=== PATIENT | male | born 1990 | race Caucasian/White ===

== ENCOUNTER 2017-10-11 11:03 | Emergency (ER) | payer BC ==
[~2017-10-11] VITALS: Ht 177.8 cm; Wt 103.0 kg
[~2017-10-11 11:03] MED LIST: LEVE500 PO
[2017-10-11 11:07] VITALS: BP 158/81; PULSE 96; RESP 18; TEMP 98.6; O2SAT 98
[2017-10-11] MEDS ORDERED: KEPP750T PO (11:21)
--- NOTE | 2017-10-11 11:48 | PD ---
HPI Chief Complaint: Seizure Time Seen by Provider: 11:28 Travel History International Travel<30 days: No Contact w/Intl Traveler<30days: No Traveled to known affect area: No History of Present Illness HPI 27-year-old male was brought in by EMS after a seizure episode. Patient was witnessed by his roommate having seizure this morning. Patient was in the bathroom. Patient states that he had loss of consciousness and woke up in the ambulance. Patient states that he has mild aching headache. Patient denies any visual change. Patient complained of mild aching neck pain. Patient denies any chest pain or shortness of breath. Patient denies abdominal pain. Patient denies any nausea vomiting diarrhea. Patient denies any focal weakness or numbness of the extremity. Patient denies any injury from the seizure. Patient was seen in emergency room in May 2015 after a seizure episode. CT scan of the brain and workup was negative. Patient was seen by Dr. Jaquez , neurologist and put on seizure medication. Patient states that he was on seizure medication for 4 months. Patient stopped taking the seizure medication because it made him having mood swings. Patient has feelings of impending seizure intermittently since then. Patient denies any seizure episodes until today. Patient denies any illicit drugs alcohol abuse. Patient is not on any routine medication. Patient denies any medical problem. Patient denies any recent head injury. Medical record state that patient was on Keppra 1000 mg twice a day in the past. PFSH Past Medical History Cancer: No Cardiovascular Problems: No Diminished Hearing: No Endocrine: No Genitourinary: No Immune Disorder: No Musculoskeletal: No Neurologic: Yes Psychiatric: No Respiratory: No Immunizations Current: Yes Seizures: Yes (FIRST TIME WAS 06/03/15) Tetanus Vaccination: > 5 Years Influenza Vaccination: No Past Surgical History Surgical History: No Previous Surgery Social History Alcohol Use: Yes (occ.) Tobacco Use: No Substance Use: Yes (MARAJUNA DAILY) Allergies-Medications (Allergen,Severity, Reaction): Coded Allergies: No Known Allergies (Verified Adverse Reaction, Unknown, 10/11/17) Reported Meds & Prescriptions Reported Meds & Active Scripts Active Reported Keppra (Levetiracetam) 750 Mg Tab 1,000 Mg PO BID Review of Systems General / Constitutional: No: Fever Eyes: No: Visual changes HENT: No: Headaches Cardiovascular: No: Chest Pain or Discomfort Respiratory: No: Shortness of Breath Gastrointestinal: No: Abdominal Pain Genitourinary: No: Dysuria Musculoskeletal: No: Pain Skin: No Rash Neurologic: No: Weakness Psychiatric: No: Depression Endocrine: No: Polydipsia Hematologic/Lymphatic: No: Easy Bruising Physical Exam Narrative GENERAL: Well-nourished, well-developed patient. SKIN: Focused skin assessment warm/dry. HEAD: Normocephalic. EYES: No scleral icterus. No injection or drainage. Pupils 2 mm equal reactive. NECK: Supple, trachea midline. No JVD or lymphadenopathy. CARDIOVASCULAR: Regular rate and rhythm without murmurs, gallops, or rubs. RESPIRATORY: Breath sounds equal bilaterally. No accessory muscle use. GASTROINTESTINAL: Abdomen soft, non-tender, nondistended. MUSCULOSKELETAL: No cyanosis, or edema. BACK: Nontender without obvious deformity. No CVA tenderness. Neurologic exam: Patient is awake and alert oriented 3. Patient moves all extremity well. No obvious focal neurological deficit. Data Data Last Documented VS Vital Signs Date Time Temp Pulse Resp B/P (MAP) Pulse Ox O2 Delivery O2 Flow Rate FiO2 10/11/17 11:49 98 Nasal Cannula 2.00 10/11/17 11:10 96 10/11/17 11:07 98.6 18 158/81 (106) Orders Orders Electrocardiogram (10/11/17 11:38) Complete Blood Count With Diff (10/11/17 11:38) Comprehensive Metabolic Panel (10/11/17 11:38) Thyroid Stimulating Hormone (10/11/17 11:38) Iv Access Insert/Monitor (10/11/17 11:38) Ecg Monitoring (10/11/17 11:38) Oximetry (10/11/17 11:38) Drug Screen, Random Urine (10/11/17 11:38) Lorazepam (Ativan) (10/11/17 12:45) Divalproex Er (Depakote Er) (10/11/17 12:45) Labs Laboratory Tests Test 10/11/17 12:00 White Blood Count 9.6 TH/MM3 Red Blood Count 5.25 MIL/MM3 Hemoglobin 14.5 GM/DL Hematocrit 43.9 % Mean Corpuscular Volume 83.5 FL Mean Corpuscular Hemoglobin 27.6 PG Mean Corpuscular Hemoglobin Concent 33.0 % Red Cell Distribution Width 11.9 % Platelet Count 214 TH/MM3 Mean Platelet Volume 8.8 FL Neutrophils (%) (Auto) 81.2 % Lymphocytes (%) (Auto) 9.9 % Monocytes (%) (Auto) 6.8 % Eosinophils (%) (Auto) 0.7 % Basophils (%) (Auto) 1.4 % Neutrophils # (Auto) 7.8 TH/MM3 Lymphocytes # (Auto) 0.9 TH/MM3 Monocytes # (Auto) 0.7 TH/MM3 Eosinophils # (Auto) 0.1 TH/MM3 Basophils # (Auto) 0.1 TH/MM3 CBC Comment DIFF FINAL Differential Comment Blood Urea Nitrogen 13 MG/DL Creatinine 0.90 MG/DL Random Glucose 102 MG/DL Total Protein 7.7 GM/DL Albumin 3.9 GM/DL Calcium Level 9.5 MG/DL Alkaline Phosphatase 80 U/L Aspartate Amino Transf (AST/SGOT) 28 U/L Alanine Aminotransferase (ALT/SGPT) 61 U/L Total Bilirubin 0.5 MG/DL Sodium Level 141 MEQ/L Potassium Level 4.0 MEQ/L Chloride Level 111 MEQ/L Carbon Dioxide Level 22.6 MEQ/L Anion Gap 7 MEQ/L Estimat Glomerular Filtration Rate 100 ML/MIN Urine Opiates Screen NEG Urine Barbiturates Screen NEG Urine Amphetamines Screen NEG Urine Benzodiazepines Screen NEG Urine Cocaine Screen NEG Urine Cannabinoids Screen POS MDM Medical Decision Making Medical Screen Exam Complete: Yes Emergency Medical Condition: Yes Interpretation(s) 12:36 PM. CBC within normal limits. CMP within normal limits. Glucose 102. Urine drug screen positive for cannabis. Differential Diagnosis Differential diagnosis including breakthrough seizures, electrolyte imbalance. Narrative Course 27-year-old male was brought in by EMS after a seizure episode. History of seizure in the past. Patient is not on any medication now for seizure. I spoke with Dr. Tang, neurologist. Advised Depakote. Patient will be given Ativan 0.5 mg p.o. now and Depakote 500 mg p.o. now and prescription for Depakote to go. Advised patient not to drive for 6 months. Diagnosis Primary Impression: Breakthrough seizure Patient Instructions: General Instructions Additional Instructions: Take Depakote as directed. Follow-up with local neurologist and local physician for level checked in 1 week. Follow-up with neurologist as directed. Return as needed. Med/Other Pt SpecificInfo: Prescription(s) given Scripts Divalproex ER (Depakote ER) 500 Mg Gi 500 MG PO BID for Control Seizures, #60 TAB 0 Refills Prov: Jon Adams MD 10/11/17 Disposition: 01 DISCHARGE HOME Condition: Stable Jon Adams MD October 11, 2017 11:48
[2017-10-11 11:49] VITALS: O2SAT 98
[2017-10-11 12:16] LABS: AUTOMATED NEUTROPHIL # 7.8 TH/MM3 (1.8-7.7); BASOPHIL # 0.1 TH/MM3 (0-0.2); BASOPHIL % 1.4 % (0.0-2.0); EOSINOPHIL # 0.1 TH/MM3 (0-0.4); EOSINOPHIL % 0.7 % (0.0-4.0); HEMATOCRIT 43.9 % (39.0-51.0); HEMOGLOBIN 14.5 GM/DL (13.0-17.0); LYMPH % 9.9 % (9.0-44.0); LYMPHOCYTE # 0.9 TH/MM3 (1.0-4.8); MEAN CELL VOLUME 83.5 FL (80.0-100.0); MEAN CORPUSCULAR HEMOGLOBIN 27.6 PG (27.0-34.0); MEAN PLATELET VOLUME 8.8 FL (7.0-11.0); MONO % 6.8 % (0.0-8.0); MONOCYTE # 0.7 TH/MM3 (0-0.9); NEUT % 81.2 % (16.0-70.0); PLATELET COUNT 214 TH/MM3 (150-450); RED BLOOD COUNT 5.25 MIL/MM3 (4.50-5.90); RED CELL DISTRIBUTION WIDTH 11.9 % (11.6-17.2); WHITE BLOOD COUNT 9.6 TH/MM3 (4.0-11.0)
[2017-10-11 12:26] LABS: CHLORIDE 111 MEQ/L (98-107); SODIUM (NA) 141 MEQ/L (136-145)
[2017-10-11 12:29] LABS: ALBUMIN 3.9 GM/DL (3.4-5.0); BICARBONATE 22.6 MEQ/L (21.0-32.0); CALCIUM 9.5 MG/DL (8.5-10.1); GLUCOSE,RANDOM 102 MG/DL (74-106)
[2017-10-11 12:30] LABS: BLOOD UREA NITROGEN 13 MG/DL (7-18)
[2017-10-11 12:32] LABS: ALT (GPT) 61 U/L (12-78); AST (GOT) 28 U/L (15-37)
[2017-10-11 12:33] LABS: GLOMERULAR FILTRATION RATE 100 ML/MIN (>89)
[2017-10-11 12:34] LABS: TOTAL BILIRUBIN ADULT 0.5 MG/DL (0.2-1.0); TOTAL PROTEIN 7.7 GM/DL (6.4-8.2)
[2017-10-11 12:35] LABS: ALKALINE PHOSPHATASE 80 U/L (45-117)
[2017-10-11] MEDS ORDERED: DIVALPROEX SODIUM E.R. 500 MG TAB PO ONE (12:45)
[2017-10-11] MEDS ORDERED: LORazepam 0.5 MG TAB PO ONE (12:45)
[2017-10-11 12:48] VITALS: BP 136/81; PULSE 73; RESP 16; O2SAT 99
[2017-10-11] MEDS ORDERED: DEPA500T3 PO (12:48)
--- NOTE | 2017-10-13 08:50 | EKG ---
Date Performed: 10/11/2017 Time Performed: 11:58:04 PTAGE: 27 years EKG: Sinus rhythm NORMAL ECG PREVIOUS TRACING : 08/09/2015 07.43 DOCTOR: Torres Buenrostro Interpretating Date/Time 10/13/2017 08:45:20
== END 2017-10-11 13:00 | disposition home or self-care (01) ==
LOC: PHED 11:03
DX: R56.9 Unspecified convulsions (principal); F12.90 Cannabis use, unspecified, uncomplicated; R51 Headache; M54.2 Cervicalgia
CPT/HCPCS: 80053; 80307; 84443; 85025; 93005; 99284

== ENCOUNTER 2017-10-11 14:57 | Observation (INO) | payer BC ==
[~2017-10-11] VITALS: Ht 177.8 cm; Wt 105.0 kg
[~2017-10-11 14:57] MED LIST changes: +DEPA500T3 PO; +KEPP750T PO
[2017-10-11] MEDS ORDERED: SODIUM CHLOR 0.9% 1000 ML INJ 1,000 ML IV SCH (15:11)
[2017-10-11 15:15] VITALS: BP 172/83; PULSE 105; RESP 18; TEMP 98.5; O2SAT 98
[2017-10-11] MEDS ORDERED: LORazepam 2 MG/ML VIAL IV PUSH ONE (15:15)
[2017-10-11] MEDS ORDERED: METOCLOPRAMIDE HCL 10 MG/2 ML VIAL IV PUSH ONE (15:15)
--- NOTE | 2017-10-11 15:15 | PD ---
HPI Chief Complaint: Seizure Time Seen by Provider: 15:01 Travel History International Travel<30 days: No Contact w/Intl Traveler<30days: No Traveled to known affect area: No History of Present Illness HPI 27-year-old male presents via EMS for evaluation of seizure. Prior to arrival the patient was at home on his bed reportedly eating a hamburger when he had a witnessed tonic-clonic seizure in his bed. This was witnessed by roommates. The patient was postictal when EMS arrived. Currently awake and alert, complaining of a headache and nausea. He vomited 4 times en route. The patient was seen at [facility] this morning after a separate seizure occurred this morning. Reportedly he hit his head on the toilet during his initial seizure. He was seen, lab work, EKG was performed. He was given a dose of oral Depakote and oral Ativan. He was given a prescription for Depakote upon discharge. The patient has had seizures in the past, his last seizure was approximately 1.5 years ago. According to medical records she was previously on Keppra however he has not been on any antiseizure medication in several months. Endorses occasional marijuana use. Denies any other illicit substance. He has no other complaints at this time. [facility] Past Medical History Cancer: No Cardiovascular Problems: No Diminished Hearing: No Endocrine: No Genitourinary: No Immune Disorder: No Musculoskeletal: No Neurologic: Yes Psychiatric: No Respiratory: No Immunizations Current: Yes Seizures: Yes (FIRST TIME WAS 06/03/15) Social History Alcohol Use: Yes (occ.) Tobacco Use: No Substance Use: Yes (MARAJUNA DAILY) Allergies-Medications (Allergen,Severity, Reaction): Coded Allergies: No Known Allergies (Verified Adverse Reaction, Unknown, 10/11/17) Reported Meds & Prescriptions Reported Meds & Active Scripts Active Depakote ER (Divalproex Sodium) 500 Mg Gi 500 Mg PO BID Reported Keppra (Levetiracetam) 750 Mg Tab 1,000 Mg PO BID Review of Systems Except as stated in HPI: all other systems reviewed are Neg Physical Exam Narrative GENERAL: Well-developed well-nourished male in no acute distress SKIN: Warm and dry. Abrasion/contusion noted to the forehead. HEAD: Skin as noted above. Normocephalic. EYES: Pupils equal and round reactive to light extraocular muscles are intact. No scleral icterus. No injection or drainage. ENT: No nasal bleeding or discharge. Mucous membranes pink and moist. NECK: Trachea midline. No JVD. CARDIOVASCULAR: Regular rate and rhythm. No murmur appreciated. RESPIRATORY: No accessory muscle use. Clear to auscultation. Breath sounds equal bilaterally. GASTROINTESTINAL: Abdomen soft, non-tender, nondistended. Hepatic and splenic margins not palpable. MUSCULOSKELETAL: No obvious deformities. No clubbing. No cyanosis. No edema. NEUROLOGICAL: Awake and alert. No obvious cranial nerve deficits. Motor grossly within normal limits. Normal speech. PSYCHIATRIC: Appropriate mood and affect; insight and judgment normal. Data Data Last Documented VS Vital Signs Date Time Temp Pulse Resp B/P (MAP) Pulse Ox O2 Delivery O2 Flow Rate FiO2 10/11/17 15:15 98.5 105 18 172/83 (112) 98 Room Air Orders Orders Ct Brain W/O Iv Contrast(Rout) (10/11/17 ) Lorazepam Inj (Ativan Inj) (10/11/17 15:15) Electrocardiogram (10/11/17 ) Sodium Chlor 0.9% 1000 Ml Inj (Ns 1000 M (10/11/17 15:11) Metoclopramide Inj (Reglan Inj) (10/11/17 15:15) Blood Glucose (10/11/17 15:16) Admit Order (Ed Use Only) (10/11/17 ) Geophysics Professor / Telemetry WES.Q8H (10/11/17 16:51) Vital Signs (Adult) Q4H (10/11/17 16:51) Activity Bed Rest (10/11/17 16:51) Activity Oob With Assistance (10/11/17 16:51) [facility] Medical Decision Making Medical Screen Exam Complete: Yes Emergency Medical Condition: Yes Medical Record Reviewed: Yes Differential Diagnosis Breakthrough seizure, closed head injury, hypoglycemia, electrolyte abnormality Narrative Course The patient will be given IV Ativan, Reglan, normal saline. I reviewed his lab work from this morning. His CBC was unremarkable. His CMP was unremarkable. Drug screen was positive for cannabinoids. CT of the brain has been ordered. CT the brain is negative. At this point time, given the patient's recurrent seizures today, he will be admitted for observation. Diagnosis Primary Impression: Seizure Admitting Information Admitting Physician Requests: Observation Zuhair James October 11, 2017 15:15
--- NOTE | 2017-10-11 16:19 | RADRPT ---
EXAM DATE/TIME: 10/11/2017 15:54 [facility] COMPARISON: CT BRAIN W/O CONTRAST, June 03, 2015, 12:23. INDICATIONS : Seizure, cephalgia RADIATION DOSE: 56.35 CTDIvol (mGy) MEDICAL HISTORY : Seizures. SURGICAL HISTORY : None. ENCOUNTER: Initial ACUITY: 1 day PAIN SCALE: 4/10 LOCATION: cranial TECHNIQUE: Multiple contiguous axial images were obtained of the head. Using automated exposure control and adj ustment of the mA and/or kV according to patient size, radiation dose was kept as low as reasonably a chievable to obtain optimal diagnostic quality images. DICOM format image data is available electro nically for review and comparison. FINDINGS: CEREBRUM: The ventricles are normal for age. No evidence of midline shift, mass lesion, hemorrhage or acute in farction. No extra-axial fluid collections are seen. POSTERIOR FOSSA: The cerebellum and brainstem are intact. The 4th ventricle is midline. The cerebellopontine angle i s unremarkable. EXTRACRANIAL: The visualized portion of the orbits is intact. SKULL: The calvaria is intact. No evidence of skull fracture. CONCLUSION: Normal examination. Yonis Celaya MD on October 11, 2017 at 16:15 Board Certified Radiologist. This report was verified electronically.
--- NOTE | 2017-10-11 17:00 | PD ---
Data Data Last Documented VS Vital Signs Date Time Temp Pulse Resp B/P (MAP) Pulse Ox O2 Delivery O2 Flow Rate FiO2 10/11/17 15:15 98.5 105 18 172/83 (112) 98 Room Air Orders Orders Ct Brain W/O Iv Contrast(Rout) (10/11/17 ) Lorazepam Inj (Ativan Inj) (10/11/17 15:15) Electrocardiogram (10/11/17 ) Sodium Chlor 0.9% 1000 Ml Inj (Ns 1000 M (10/11/17 15:11) Metoclopramide Inj (Reglan Inj) (10/11/17 15:15) Blood Glucose (10/11/17 15:16) Admit Order (Ed Use Only) (10/11/17 ) De Icer Installer / Telemetry WES.Q8H (10/11/17 16:51) Vital Signs (Adult) Q4H (10/11/17 16:51) Activity Bed Rest (10/11/17 16:51) Activity Oob With Assistance (10/11/17 16:51) MDM Medical Record Reviewed: Yes Supervised Visit with ARMAND: Yes Narrative Course I, Dr. Celis, have reviewed the advance practice practitioner's documentation and am in agreement, met with the patient face to face, made the diagnosis, and the medical decision making was done by me. *My assessment and Findings: Patient will be admitted for monitoring and further evaluation for recurrent seizure events. Diagnosis Primary Impression: Seizure David Celis MD October 11, 2017 16:59
[2017-10-11 17:12] VITALS: BP 145/91; PULSE 86
--- NOTE | 2017-10-11 17:59 | HHI.HP ---
HPI Service [facility] Primary Care Physician No Primary Care Physician Admission Diagnosis Seizure Diagnoses: Chief Complaint: Seizure Travel History International Travel<30 Days: No Contact w/Intl Traveler <30 Da: No Traveled to Known Affected Are: No History of Present Illness 27-year-old white male admitted for recurrent seizures. History is obtained from patient, and medical records as the patient has a vague memory of the incident. Patient was in his usual state of health until earlier this morning when he was noted by his roommates to have a seizure in his bathroom at home, woke up in the ambulance ride to [facility]. Reportedly the patient struck his head on the toilet seat as he fell. At [facility] ED he was stabilized, given 0.5 mg po Ativan and depakote ER 500 mg po and prescribed a ED per neurology's recommendations and discharged home. Patient reports then having a headache at some point and sat down back at his dormitory to eat a hamburger and just remembers eating a few bites after which his memory is unclear what happened. He does have a vague memory of waking up later ultimately to full consciousness in the emergency department. Both the patient and the ED nurse here affirm that he developed some nausea and had some pink vomitus which was Hemoccult negative. Patient denies any urinary or fecal incontinence. Denies any tongue biting. Blood work at his initial ED visit was unremarkable[place] [facility] [place] pt ativan 1 mg iv as well as reglan. CT head was negative for any acute findings. Patient says that he has not been taking any prescribed medications whatsoever. Says that he stopped taking antiepileptic drug treatment over a year ago, says he saw Dr. Jaquez in the clinic. Says that the patient himself stopped taking antiepileptic drugs due to mood swings are becoming a problem at work. Patient cannot remember if he was taking Dilantin or Keppra at that time. Patient does admit to being stressed at work at [employer] recently. Review of Systems Except as stated in HPI: all other systems reviewed are Neg Past Family Social History Past Medical History Epilepsy Allergies: Coded Allergies: No Known Allergies (Verified Adverse Reaction, Unknown, 10/11/17) Family History Hypertension Social History Smokes marijuana actively, says he drinks about 1-2 beers about twice a week, cannot remember the last day but does affirm that he drank earlier in the week Physical Exam Vital Signs Vital Signs Date Time Temp Pulse Resp B/P (MAP) Pulse Ox O2 Delivery O2 Flow Rate FiO2 10/11/17 17:12 86 145/91 (109) 10/11/17 15:15 98.5 105 18 172/83 (112) 98 Room Air Physical Exam VS: afebrile GENERAL: Lying in bed, awake, alert, no acute distress, well-nourished male SKIN: Warm and dry. EYES: Pupils equal and round. No scleral icterus. No injection or drainage. ENT: No nasal bleeding or discharge. Mucous membranes pink and moist. CARDIOVASCULAR: Regular rate and rhythm. no murmurs RESPIRATORY: No accessory muscle use. Clear to auscultation. Breath sounds equal bilaterally. GASTROINTESTINAL: Abdomen soft, non-tender, nondistended. Extremities: No clubbing, cyanosis, or edema. No obvious deformities. MUSCULOSKELETAL: grossly intact ROM with 5/5 strength in upper and lower extremities proximally; adequate muscle bulk and tone for age and habitus. NEUROLOGICAL: Awake and alert. No obvious cranial nerve deficits. No facial droop nor slurred speech noted.Diminished patellar reflexes bilaterally. Intact sensation to light finger touch over bilateral lower and upper extremities. No nystagmus noted, tongue protruding midline. PSYCHIATRIC: Appropriate mood and affect; insight and judgment normal. Imaging Last Impressions Head CT 10/11/17 0000 Signed Impressions: Service Date/Time: October 15:54 - CONCLUSION: Normal examination. Yonis Celaya MD Caprini VTE Risk Assessment Caprini VTE Risk Assessment: No/Low Risk (score <= 1) Caprini Risk Assessment Model Point Value = 1 Point Value = 2 Point Value = 3 Point Value = 5 Age 41-60 Minor surgery BMI > 25 kg/m2 Swollen legs Varicose veins or History of unexplained or recurrent spontaneous Oral contraceptives or hormone replacement Sepsis (< 1 month) Serious lung disease, including pneumonia (< 1 month) Abnormal pulmonary function Acute myocardial infarction Congestive heart failure (< 1 month) History of inflammatory bowel disease Medical patient at bed rest Age 61-74 Arthroscopic surgery Major open surgery (> 45 min) Laparoscopic surgery (> 45 min) Malignancy Confined to bed (> 72 hours) Immobilizing plaster cast Central venous access Age >= 75 History of VTE Family history of VTE Factor V Leiden Prothrombin [id number] Lupus anticoagulant Anticardiolipin antibodies Elevated serum homocysteine Heparin-induced thrombocytopenia Other congenital or acquired thrombophilia Stroke (< 1 month) Elective arthroplasty Hip, pelvis, or leg fracture Acute spinal cord injury (< 1 month) Prophylaxis Regimen Total Risk Factor Score Risk Level Prophylaxis Regimen 0-1 Low Early ambulation 2 Moderate Order ONE of the following: *Sequential Compression Device (SCD) *Heparin 5000 units SQ BID 3-4 Higher Order ONE of the following medications: *Heparin 5000 units SQ TID *Enoxaparin/Lovenox 40 mg SQ daily (WT < 150 kg, CrCl > 30 mL/min) *Enoxaparin/Lovenox 30 mg SQ daily (WT < 150 kg, CrCl > 10-29 mL/min) *Enoxaparin/Lovenox 30 mg SQ BID (WT < 150 kg, CrCl > 30 mL/min) AND/OR *Sequential Compression Device (SCD) 5 or more Highest Order ONE of the following medications: *Heparin 5000 units SQ TID (Preferred with Epidurals) *Enoxaparin/Lovenox 40 mg SQ daily (WT < 150 kg, CrCl > 30 mL/min) *Enoxaparin/Lovenox 30 mg SQ daily (WT < 150 kg, CrCl > 10-29 mL/min) *Enoxaparin/Lovenox 30 mg SQ BID (WT < 150 kg, CrCl > 30 mL/min) AND *Sequential Compression Device (SCD) Assessment and Plan Assessment and Plan 27-year-old white female being admitted for recurrent seizures. Seizures -Likely epileptic seizure activity due to being off medications all this time as well as marijuana use. Previously was given Ativan and Depakote at previous ED visit as well as Reglan and Ativan again at second ED visit. Will give a one -time loading dose of fosphenytoin. Will consult neurology for ultimate p.o. recommendations. -Seizure precautions, telemetry for closer monitoring Alcohol use -Unclear how heavy, will place on CIWA protocol, check INR, LFTs unremarkable SCDs Bob Clemente MD October 11, 2017 17:59
[2017-10-11] MEDS ORDERED: FOSPHENYTOIN INJ 1,000 MGPE in SODIUM CHLORIDE 0.9% INJ 50 ML IV ONE (18:00)
[2017-10-11 19:03] LABS: PROTHROMBIN TIME - PATIENT 10.1 SEC (9.8-11.6)
[2017-10-11 19:05] VITALS: BP 128/71; PULSE 90; RESP 16; O2SAT 97
[2017-10-11 19:47] VITALS: BP 132/68
[2017-10-11 20:25] VITALS: BP 119/77; PULSE 79; RESP 16; TEMP 98.6; O2SAT 98
[2017-10-11] MEDS: ACETAMINOPHEN 325 MG TAB PO PRN (22:05)
[2017-10-11 23:45] VITALS: BP 109/60; PULSE 82; RESP 16; TEMP 98.9; O2SAT 98
[2017-10-12] VITALS (9 sets, daily range): BP systolic 119–151; BP diastolic 60–99; PULSE 54–85; RESP 15–24; TEMP 97.5–98.5; O2SAT 95–100
[2017-10-12] MEDS: ACETAMINOPHEN 325 MG TAB PO PRN (09:29)
--- NOTE | 2017-10-12 11:29 | HHI.PR ---
Subjective Remarks Follow-up breakthrough seizure/medical noncompliance October 12, 2017-patient seen and examined, since admission has had no more seizure activity. Denies any dizziness. Chest pain or shortness of breath Objective Vitals Vital Signs Date Time Temp Pulse Resp B/P (MAP) Pulse Ox O2 Delivery O2 Flow Rate FiO2 10/12/17 08:26 97.8 63 24 144/90 (108) 100 10/12/17 04:00 72 10/12/17 03:46 98.2 72 16 119/78 (92) 99 10/11/17 23:45 98.9 82 16 109/60 (76) 98 10/11/17 20:25 98.6 79 16 119/77 (91) 98 10/11/17 19:47 93 18 132/68 (89) 98 10/11/17 19:05 90 16 128/71 (90) 97 Room Air 10/11/17 17:12 86 145/91 (109) 10/11/17 15:15 98.5 105 18 172/83 (112) 98 Room Air I/O 10/11/17 10/11/17 10/11/17 10/12/17 10/12/17 10/12/17 07:00 15:00 23:00 07:00 15:00 23:00 Intake Total 1070 ml 720 ml Output Total 400 ml Balance 670 ml 720 ml Intake Oral 720 ml IV Total 1070 ml Output Urine Total 400 ml # Voids 1 Imaging Last Impressions Head CT 10/11/17 0000 Signed Impressions: Service Date/Time: October 15:54 - CONCLUSION: Normal examination. Yonis Celaya MD Objective Remarks GENERAL: NAD SKIN: Warm and dry. HEAD: Normocephalic. EYES: No scleral icterus. No injection or drainage. NECK: Supple, trachea midline. No JVD or lymphadenopathy. CARDIOVASCULAR: Regular rate and rhythm without murmurs, gallops, or rubs. RESPIRATORY: Breath sounds equal bilaterally. No accessory muscle use. GASTROINTESTINAL: Abdomen soft, non-tender, nondistended. MUSCULOSKELETAL: No cyanosis, or edema. BACK: Nontender without obvious deformity. No CVA tenderness. A/P Problem List: (1) Breakthrough seizure ICD Code: G40.919 - Epilepsy, unspecified, intractable, without status epilepticus Status: Acute (2) Seizure ICD Code: R56.9 - Unspecified convulsions Status: Acute Assessment and Plan 27-year-old man with Breakthrough seizures Neurology consultation pending Will have neuro decide on antiepileptic drugs Order EEG Ativan as needed Seizure precaution Alcohol use Patient states he only drinks twice a week Currently on CIWA protocol, Lenin Vizcaino MD October 12, 2017 11:29
[2017-10-12] MEDS ORDERED: LORazepam 2 MG/ML VIAL IV PUSH PRN (11:45)
[2017-10-12] MEDS: LACOSAMIDE 100 MG TAB PO SCH ×2 (14:30→22:28)
--- NOTE | 2017-10-12 14:49 | MB ---
cc: Yareli Salinas MD,Jones Villarreal MD DATE: 10/12/2017 DATE OF : 1990 AGE: [age] years old REASON FOR CONSULTATION: Breakthrough seizure. HISTORY OF PRESENT ILLNESS: The patient is a 27-year-old man admitted for recurrent seizure, apparently started having seizures back in 2015, was placed on Keppra and then possibly changed to Depakote. I am in the process of trying to get some office records to see what medication he has been taking at home. However, the hospital reports he was on Depakote ER. Apparently had a breakthrough seizure in the bathroom, came to [facility] ED and discharged and had another one at home. Usually he gets a funny sensation, he points to his belly, and then he has an epileptic event. There was no incontinence or tongue biting. There was some questionable postictal confusion afterwards. Right now he is having an EEG and the EEG did show sharp waves over both hemispheres, it seems slightly more right than left. ALLERGIES: NONE REPORTED. FAMILY HISTORY: Hypertension. SOCIAL HISTORY: Smokes marijuana. Drinks 1-2 beers a week, but does not claim to be binge drinking. He states he has no history of any [employer] infections, encephalitis, head trauma or family history of seizures. He did have an MRI with and without contrast of the brain last year that was unremarkable. PHYSICAL EXAMINATION: VITAL SIGNS: Temperature 97.5, pulse 85, respiratory rate 20, blood pressure 127/80. NECK: Supple. HEART: Regular. CHEST: Lungs clear. NEUROLOGICAL EXAMINATION: He is awake, alert. He is oriented, fluent. Pupils reactive. Face symmetrical. Tongue midline. No drift or leg lag. Cerebellar testing is normal. Toes are downgoing. Gait is withheld. LABORATORY DATA: CBC on 10/11/2017 was unremarkable. Chemistries: Chloride 111, TSH 2.100. Coag panel normal. Toxicology positive for cannabinoids. IMAGING STUDIES: CT was done as well and that was unremarkable. As stated, the EEG does show bilateral sharps, right more so than left. IMPRESSION: Breakthrough seizure despite being on antiepileptic medication at home. RECOMMENDATIONS: He was loaded with what looks like 1 gram of Cerebyx last night. I am trying to determine what he takes in the office, but certainly we can start him on Dilantin 100 mg every 8 hours, but another good option would be putting him on Vimpat 50 mg b.i.d. No levels need to be monitored. If he is stable, he certainly can be sent home tomorrow. I will give him some Ativan p.r.n. for any auras or mild seizure. He can take 1 afterwards and have him followup as an outpatient with Dr. Jaquez. He works at [employer] in [place]. I informed him he is not to drive for 6 months. He has not to climb any ladders or swim alone. MD UGO Carter/ALEXIS , 02:04 PM , 02:48 PM
--- NOTE | 2017-10-12 16:06 | MG ---
cc: Yareli Salinas MD DATE OF : 1990 AGE: [age] years old. EEG NUMBER: [id number] REFERRING PHYSICIAN: . [place] [facility] [place] Awake, drowsy study with hyperventilation, good effort. Photic stimulation. CT normal, MRI with and without contrast in the past have been normal. History of new onset epilepsy since 2016. MEDICATIONS: Currently, was loaded with Cerebyx. DESCRIPTION OF RECORD: Overall background alpha is 8 Hz, 20-30 microvolts. Symmetrical background currently. Photic stimulation started at the initial portion with a good driving response, but there are sharp waves noted. Initially started in T4-T6, T6-O2, but as the EEG continued, the sharp waves were not only right-sided but left-sided, initially started during the photic stimulatory phase. Hyperventilation then starts and there are sharp waves during that portion as well paroxysmally seen. Again, bilateral mostly. Some PVCs are noted on EKG. IMPRESSION: Abnormal EEG due to bilateral sharp wave activity consistent with probable focus for the patient's epileptic activity. Clinical correlation. Yareli Salinas MD DF/ALEXIS , 03:18 PM , 04:05 PM
[2017-10-13 04:03] VITALS: BP 140/86; PULSE 60; RESP 16; TEMP 97.7; O2SAT 99
[2017-10-13 07:35] VITALS: BP 139/99; PULSE 74; RESP 18; TEMP 97.5; O2SAT 99
[2017-10-13] MEDS ORDERED: LACO100 PO (08:35)
[2017-10-13] MEDS: LACOSAMIDE 100 MG TAB PO SCH (08:36)
--- NOTE | 2017-10-13 08:36 | HHI.DCPOC ---
Discharge Care Plan Diagnosis: (1) Seizure (2) Breakthrough seizure Additional Problems Loss of Consciousness Goals to Promote Your Health * To prevent worsening of your condition and complications * To maintain your health at the optimal level Directions to Meet Your Goals Take your medications as prescribed Follow your dietary instruction Follow activity as directed Keep your appointments as scheduled Take your immunizations and boosters as scheduled If your symptoms worsen call your PCP, if no PCP go to Urgent Care Center or Emergency Room Smoking is Dangerous to Your Health. Avoid second hand smoke Call the 24-hour hour crisis hotline for domestic abuse at Davin Jama October 13, 2017 08:36
--- NOTE | 2017-10-13 08:43 | EKG ---
Date Performed: 10/11/2017 Time Performed: 15:21:53 PTAGE: 27 years EKG: Sinus rhythm NORMAL ECG PREVIOUS TRACING : 10/11/2017 11.58 DOCTOR: Torres Buenrostro Interpretating Date/Time 10/13/2017 08:40:14
[2017-10-13 08:45] VITALS: PULSE 66
--- NOTE | 2017-10-13 09:00 | HHI.PR ---
Subjective Remarks Follow-up breakthrough seizure/medical noncompliance October 12, 2017-patient seen and examined, since admission has had no more seizure activity. Denies any dizziness. Chest pain or shortness of breath October 13, 2017-patient seen and examined, no acute event overnight. No seizure episode 2 days since admission. Was seen yesterday by neurology and patient started on Vimpat 200 mg twice daily. Objective Vitals Vital Signs Date Time Temp Pulse Resp B/P (MAP) Pulse Ox O2 Delivery O2 Flow Rate FiO2 10/13/17 08:45 66 10/13/17 07:35 97.5 74 18 139/99 (112) 99 10/13/17 04:03 97.7 60 16 140/86 (104) 99 10/12/17 23:47 98.0 54 15 125/88 (100) 99 10/12/17 20:01 98.5 80 16 151/99 (116) 96 10/12/17 15:15 98.3 82 20 137/60 (85) 95 10/12/17 11:55 85 10/12/17 11:42 97.5 69 20 127/80 (96) 98 I/O 10/12/17 10/12/17 10/12/17 10/13/17 10/13/17 10/13/17 07:00 15:00 23:00 07:00 15:00 23:00 Intake Total 720 ml Balance 720 ml Intake Oral 720 ml # Voids 2 Imaging Last Impressions Head CT 10/11/17 0000 Signed Impressions: Service Date/Time: October 15:54 - CONCLUSION: Normal examination. Yonis Celaya MD Objective Remarks GENERAL: NAD SKIN: Warm and dry. HEAD: Normocephalic. EYES: No scleral icterus. No injection or drainage. NECK: Supple, trachea midline. No JVD or lymphadenopathy. CARDIOVASCULAR: Regular rate and rhythm without murmurs, gallops, or rubs. RESPIRATORY: Breath sounds equal bilaterally. No accessory muscle use. GASTROINTESTINAL: Abdomen soft, non-tender, nondistended. MUSCULOSKELETAL: No cyanosis, or edema. BACK: Nontender without obvious deformity. No CVA tenderness. Procedures none A/P Problem List: (1) Breakthrough seizure ICD Code: G40.919 - Epilepsy, unspecified, intractable, without status epilepticus Status: Acute (2) Seizure ICD Code: R56.9 - Unspecified convulsions Status: Acute Assessment and Plan 27-year-old man with Breakthrough seizures Neurology input appreciated Abnormal EEG due to bilateral sharp wave activity consistent with probable focus for the patient's epileptic activity Currently on Vimpat 200 mg twice daily Ativan as needed Seizure precaution Alcohol use Patient states he only drinks twice a week Currently on Mando Diana Eric MD October 13, 2017 09:00
--- NOTE | 2017-10-13 09:04 | HHI.DS ---
Discharge Summary Admission Date October 11, 2017 at 16:53 Discharge Date: October 13, 2017 Admitting Diagnosis Seizure (1) Breakthrough seizure ICD Code: G40.919 - Epilepsy, unspecified, intractable, without status epilepticus Status: Acute (2) Seizure ICD Code: R56.9 - Unspecified convulsions Status: Acute Procedures none Brief History - From Admission 27-year-old white male admitted for recurrent seizures. History is obtained from patient, and medical records as the patient has a vague memory of the incident. Patient was in his usual state of health until earlier this morning when he was noted by his roommates to have a seizure in his bathroom at home, woke up in the ambulance ride to [facility] ED. Reportedly the patient struck his head on the toilet seat as he fell. At [facility] ED he was stabilized, given 0.5 mg po Ativan and depakote ER 500 mg po and prescribed a ED per neurology's recommendations and discharged home. Patient reports then having a headache at some point and sat down back at his dormitory to eat a hamburger and just remembers eating a few bites after which his memory is unclear what happened. He does have a vague memory of waking up later ultimately to full consciousness in the emergency department. Both the patient and the ED nurse here affirm that he developed some nausea and had some pink vomitus which was Hemoccult negative. Patient denies any urinary or fecal incontinence. Denies any tongue biting. Blood work at his initial ED visit was unremarkable. [facility] [place] pt ativan 1 mg iv as well as reglan. CT head was negative for any acute findings. Patient says that he has not been taking any prescribed medications whatsoever. Says that he stopped taking antiepileptic drug treatment over a year ago, says he saw Dr. Jaquez in the clinic. Says that the patient himself stopped taking antiepileptic drugs due to mood swings are becoming a problem at work. Patient cannot remember if he was taking Dilantin or Keppra at that time. Patient does admit to being stressed at work at [employer] recently. Significant Findings Laboratory Tests Test 10/11/17 18:30 Imaging Last Impressions Head CT 10/11/17 0000 Signed Impressions: Service Date/Time: October 15:54 - CONCLUSION: Normal examination. Yonis Celaya MD PE at Discharge GENERAL: NAD SKIN: Warm and dry. HEAD: Normocephalic. EYES: No scleral icterus. No injection or drainage. NECK: Supple, trachea midline. No JVD or lymphadenopathy. CARDIOVASCULAR: Regular rate and rhythm without murmurs, gallops, or rubs. RESPIRATORY: Breath sounds equal bilaterally. No accessory muscle use. GASTROINTESTINAL: Abdomen soft, non-tender, nondistended. MUSCULOSKELETAL: No cyanosis, or edema. BACK: Nontender without obvious deformity. No CVA tenderness. Hospital Course While in hospital, patient was treated for Breakthrough seizures Neurology was consulted Abnormal EEG due to bilateral sharp wave activity consistent with probable focus for the patient's epileptic activity Patient was started on Vimpat 200 mg twice daily Ativan as needed Seizure precaution Alcohol use Patient states he only drinks twice a week Was placed on CIWA protocol, Rally SCDs was placed as DVT prophylaxis Pt Condition on Discharge: Good Discharge Disposition: Discharge Home Discharge Time: <= 30 minutes Discharge Instructions DIET: Follow Instructions for: As Tolerated, No Restrictions Activities you can perform: Regular-No Restrictions Follow up Referrals: Neurology - 1 Week with Jones Jaquez MD PCP Follow-up - 2-3 Days New Medications: Lacosamide (Vimpat) 100 Mg Tab 100 MG PO BID for Seizure Control, #60 TAB Discontinued Medications: Divalproex ER (Depakote ER) 500 Mg Gi 500 MG PO BID for Control Seizures, #60 TAB 0 Refills Levetiracetam (Keppra) 750 Mg Tab 1000 MG PO BID for Control Seizures, #60 TAB 0 Refills Lenin Álvarez MD October 13, 2017 09:03
== END 2017-10-13 09:36 | disposition home or self-care (01) ==
LOC: NEPE 14:57 → NEDA 16:53 → NEPGCP 19:43
PROVIDERS: ADMIT Hospitalist; ATTEND Hospitalist
DX: G40.919 Epilepsy, unspecified, intractable, without status epilepticus (principal); F12.90 Cannabis use, unspecified, uncomplicated; Z91.19 Patient's noncompliance with other medical treatment and regimen; Z82.49 Family history of ischemic heart disease and other diseases of the circulatory system; W22.09XA Striking against other stationary object, initial encounter
CPT/HCPCS: 70450; 85610; 93005; 95819; 96361; 96374; 96375; 99285; G0378; J2060; J2765; J7030; Q2009